=== PATIENT | female | born 1995 | race African-American/Black ===

== ENCOUNTER 2016-03-20 17:09 | Emergency (ER) | payer OTHER ==
[2016-03-20] MEDS ORDERED: TYLENOL ONE (17:37)
[2016-03-20] MEDS ORDERED: TYLENOL PO ONE (17:38)
--- NOTE | 2016-03-20 20:00 | PROVIDER DOCUMENTATION ---
HPI-Respiratory General - General Source: patient - History of Present Illness-Resp Quality of Pain: reports: aching Severity in ED: reports: mild Onset/Duration: reports: 3 days ago Timing: reports: still present Cough Quality/Degree: reports: mild Episode Frequency: no prior episodes Modifying Factors: worse with: coughing Associated Symptoms: reports: chest pain/soreness, cough, fever/chills, muscle/ bodyaches, nasal congestion Similar Symptoms Previously?: No Recently seen or treated by another doctor?: No <Janet Silva - Last Filed: 03/20/16 19:56> <Bria Bear - Last Filed: 03/20/16 20:30> - General Chief Complaint: Cold Symptoms Stated Complaint: COLD SX Time Seen by Provider: 03/20/16 17:59 Allergies/Adverse Reactions: Patient Allergies Allergy/AdvReac Type Severity Reaction Status Date / Time No Known Allergies Allergy Verified 03/20/16 17:37 - History of Present Illness-Resp Nature of Presenting Problem: 21 year old F presents to the Ed with a cc of cough, congestion, body aches, subjective fevers, and pain in chest with coughing. Onset of 3 days. Pt also states that she has not had an appetite since yesterday. Denies chills, sore throat, ear pain, nausea, and vomiting. (Janet Silva) Review of Systems - Adult - REVIEW OF SYSTEMS - ADULT Constitutional: denies: chills, fever Eyes: reports: no symptoms reported Ears, Nose, Mouth & Throat: reports: sinus problem. denies: ear pain, throat pain Cardiovascular: reports: chest pain (with coughing). denies: palpitations Respiratory: reports: cough. denies: shortness of breath Gastrointestinal: denies: abdominal pain, nausea, vomiting Genitourinary: reports: no symptoms reported Musculoskeletal: denies: back pain, muscle aches, muscle weakness Integumentary: denies: skin sores/ulcer, skin thickening Neurological: reports: no symptoms reported Psychiatric: reports: no symptoms reported Endocrine: reports: no symptoms reported Hematologic/Lymphatic: reports: no symptoms reported Allergic/Immunologic: reports: no symptoms reported All Other Systems: Reviewed and Negative <Janet Silva - Last Filed: 03/20/16 19:56> Past History - Adult - PAST MEDICAL HISTORY-ADULT Review of Records: reports: Nursing Assessment Review, Medications Reviewed Major Childhood Illnesses: reports: denies history Other Conditions: reports: denies history - PRIOR SURGERIES/PROCEDURES Surgical/Procedure History: reports: none - IMMUNIZATION STATUS Childhood Immunizations: See Nurse Assessment Flu Vaccine: See Nurse Assessment - SOCIAL HISTORY Smoking: cigarettes, less than 1 pack/day Provider spent 3-5 mins advising pt. on dangers of tobacco.: Discussed manners to quit use, and f/u contacts for add'l counseling. Substance Use: none/never Alcohol Use Frequency: never <Janet Silva - Last Filed: 03/20/16 19:56> Physical Exam-General - PHYSICAL EXAM-ADULT Initial Vital Signs Reviewed: Yes - CONSTITUTIONAL General Appearance: appears well, alert, no apparent distress - EYES Eyes: PERRL/EOMI, pink conjunctivae - HEAD, EARS, NOSE, MOUTH & THROAT HENMT: normocephalic/atraumatic, moist mucous membranes, pharyngeal erythema ( post nasal drainage), frontal tenderness. negative: maxillary tenderness - NECK Neck: non-tender, full range of motion, supple. negative: lymphadenopathy - RESPIRATORY Respiratory: chest non-tender, lungs clear, normal breath sounds - CARDIOVASCULAR Cardiovascular: regular rate, rhythm, no edema - MUSCULOSKELETAL Back Exam: normal inspection, no CVA tenderness, no vertebral tenderness Extremity: normal gait, normal inspection - SKIN Integumentary: normal color, normal turgor, warm/dry - NEUROLOGIC Neurologic: grossly normal, no motor/sensory deficits - PSYCHIATRIC Psych/Mental Status: normal thought content, normal thought process <MarzenatBria M. - Last Filed: 03/20/16 20:30> Progress <Janet Silva - Last Filed: 03/20/16 19:56> <ThiotBria M. - Last Filed: 03/20/16 20:30> - PLAN OF CARE/RESULTS Progress/Plan/Lab Results: Vital Signs Temp Pulse Resp BP Pulse Ox 03/20/16 17:34 101.1 F H 102 H 18 112/72 97 No Known Allergies Allergy (Verified 03/20/16 17:37) No Home Medications 03/20/16 Laboratory 03/20/16 17:42 Influenza A (Rapid) NEGATIVE Influenza B (Rapid) NEGATIVE Orders Category Date Time Status INFLUENZA SCREEN PL Stat Lab 03/20/16 17:42 Completed Acetaminophen [Tylenol] Med 03/20/16 17:37 Discontinued 1,000 mg .ROUTE .STK-MED ONE Acetaminophen [Tylenol] Med 03/20/16 17:38 Discontinued 1,000 mg PO NOW ONE (Bria BearMichelet) Departure <Janet Silva - Last Filed: 03/20/16 19:56> - Departure Time of Disposition Order: 20:28 Certified Medical Emergency: Emergent <MarianelaBria Garrison - Last Filed: 03/20/16 20:30> - Departure DIAGNOSIS: Upper respiratory infection Qualifiers: URI type: unspecified URI Qualified Code(s): J06.9 - Acute upper respiratory infection, unspecified Fever Qualifiers: Fever type: unspecified Qualified Code(s): R50.9 - Fever, unspecified Disposition: HOME 01 Condition: Good Additional Instructions: ED Follow Up Instructions: You have been treated by a care provider in the Emergency Department. These instructions are being provided to you so you can have an understanding of how to care for yourself upon discharge. Upon discharge from the Emergency Department, you are responsible for making arrangements for follow-up care by a physician of your choice. Take all prescribed medications as directed. Return to the Emergency Department immediately for any new or worsening symptoms. You may call the Physician Referral phone number at [phone] to obtain a list of Physicians who are taking new patients. Prescriptions: Sulfamethoxazole/Trimethoprim [Bactrim Ds Tablet] 1 each PO BID #20 tablet Fluconazole [Diflucan] 150 mg PO DAILY #2 tablet Guaifenesin/Dextromethorphan [Guaifenesin Dm Syrup] 10 ml PO BID #120 ml Referrals: None,PCP [Primary Care Provider] - Yasmine Crawford MD [STAFF PHYSICIAN] - Attestation - Scribe Verification/Attestation Scribe:: Janet Silva Acting as Scribe for:: Bria Bear Scribe documention review:: This chart was documented by a scribe and accurately reflects the service the provider performed and the decisions made by the provider. <Janet Silva - Last Filed: 03/20/16 19:56> - Physician/ Mid-level Attestation Patient care was provided by Mid-level provider (CHILD CARE TEACHER/PA):: Yes Mid-level provider:: Bria Bear Mid-level documentation review:: The Mid-level provider documentation, treatment plan and medical decision making was reviewed by the physician who agrees with all treatment and medical decision making by the MLP. <Bria Bear - Last Filed: 03/20/16 20:30> Physician Attestation - Physician Attestation I, the provider, attest to the following statement:: Bria Bear Physician documentation Attestation:: This documentation recorded by the scribe accurately reflects the service I personally performed and the decisions made by me. <Janet Silva - Last Filed: 03/20/16 19:56>
[2016-03-20] MEDS ORDERED: DIFLUCAN PO ONE (20:30)
[2016-03-20] MEDS ORDERED: SEPTRA DS PO ONE (20:30)
[2016-03-20 21:01] VITALS: BP 101/73
== END 2016-03-20 21:01 | disposition home or self-care (01) ==
LOC: P.ED 17:09
DX: J06.9 Acute upper respiratory infection, unspecified (principal); R50.9 Fever, unspecified; R05 Cough; R09.81 Nasal congestion; M79.1 Myalgia; R07.89 Other chest pain; F17.210 Nicotine dependence, cigarettes, uncomplicated; Z71.6 Tobacco abuse counseling
CPT/HCPCS: 87804